=== PATIENT | male | born 1940 ===

== ENCOUNTER 2020-07-02 16:39 | Inpatient (IN) ==
[2020-07-02] MEDS ORDERED: Ondansetron 4 MG/2 ML VIAL IVP PRN (20:41)
[2020-07-02] MEDS: *HR* HYDROcodone/Acet 5/325 mg TABLET PO PRN (23:24)
[2020-07-03 05:19] LABS: Basophils # 0.1 K/mcL (0.0-0.2); Basophils % 0.7 %; Eosinophils # 0.4 K/mcL (0.0-0.6); Eosinophils % 3.9 %; Hematocrit 29.4 % (37.5-50.1); Hemoglobin 9.9 g/dL (12.9-16.9); Immature Granulocytes % 0.7 % (0-4); Lymphocytes # 2.5 K/mcL (0.6-4.6); Lymphocytes % 23.4 %; Mean Corpuscular HGB Conc 33.7 g/dL (31.6-35.5); Mean Corpuscular Hemoglobin 30.9 pg (28.0-33.3); Mean Corpuscular Volume 91.9 fL (83.0-100.0); Mean Platelet Volume 10.7 fL (9.4-12.4); Monocytes # 1.2 K/mcL (0.0-1.3); Monocytes % 11.1 %; Neutrophils # 6.4 K/mcL (1.6-8.9); Platelet Count 200 K/mcL (140-400); Red Cell Distribution Width 12.2 % (11.5-14.5); Segmented Neutrophils % 60.2 %; White Blood Count 10.6 K/mcL (4.3-11.1)
[2020-07-03 05:37] LABS: BUN/Creatinine Ratio 24 (6-26); Blood Urea Nitrogen 22 mg/dL (8-23); Calcium 8.5 mg/dL (8.6-10.3); Carbon Dioxide 29 mEq/L (23-29); Chloride 102 mEq/L (98-107); Glucose 115 mg/dL (70-105); Osmolality,Calculated 288 (280-300); Potassium 3.2 mEq/L (3.5-5.1); Sodium 137 mEq/L (136-145); eGFR For African Americans > 60 (> 60); eGFR For Non-African Americans > 60 (> 60)
[2020-07-03] MEDS: *HR* Enoxaparin 40 MG/0.4 ML SYRINGE SQ SCH (06:13)
[2020-07-03] MEDS: *HR* HYDROcodone/Acet 5/325 mg TABLET PO PRN ×3 (06:13→19:09)
[2020-07-03] MEDS: Aspirin Enteric Coated 81 MG Tablet PO SCH (08:45)
[2020-07-03] MEDS: amLODIPine 5 MG TABLET PO SCH (08:45)
[2020-07-03] MEDS: carvediloL 25 MG TABLET PO SCH ×2 (08:45→16:15)
[2020-07-03] MEDS: Multivit/Ca/Min/Fe/FA 1 TAB TABLET PO SCH (08:46)
[2020-07-03] MEDS: Cholecalciferol (D-3) 1,000 UNIT (25MCG) TABLET PO SCH (08:46)
[2020-07-03] MEDS: (Omega-3/Dha/Epa/Fish Oil) PO SCH (08:48)
[2020-07-04] MEDS: *HR* Enoxaparin 40 MG/0.4 ML SYRINGE SQ SCH (05:49)
[2020-07-04 06:57] LABS: Hematocrit 29.6 % (37.5-50.1); Hemoglobin 9.7 g/dL (12.9-16.9); Mean Corpuscular HGB Conc 32.8 g/dL (31.6-35.5); Mean Corpuscular Hemoglobin 30.5 pg (28.0-33.3); Mean Corpuscular Volume 93.1 fL (83.0-100.0); Mean Platelet Volume 10.4 fL (9.4-12.4); Platelet Count 206 K/mcL (140-400); Red Blood Count 3.18 M/mcL (4.19-5.50); Red Cell Distribution Width 12.3 % (11.5-14.5); White Blood Count 10.1 K/mcL (4.3-11.1)
[2020-07-04 07:28] LABS: BUN/Creatinine Ratio 20 (6-26); Blood Urea Nitrogen 21 mg/dL (8-23); Calcium 8.6 mg/dL (8.6-10.3); Carbon Dioxide 29 mEq/L (23-29); Chloride 102 mEq/L (98-107); Glucose 116 mg/dL (70-105); Magnesium 2.1 mg/dL (1.6-2.6); Osmolality,Calculated 290 (280-300); Potassium 3.5 mEq/L (3.5-5.1); Sodium 138 mEq/L (136-145); eGFR For African Americans > 60 (> 60); eGFR For Non-African Americans > 60 (> 60)
[2020-07-04] MEDS: Cholecalciferol (D-3) 1,000 UNIT (25MCG) TABLET PO SCH (08:37)
[2020-07-04] MEDS: Acetaminophen 325 MG TABLET PO PRN ×2 (08:37→17:03)
[2020-07-04] MEDS: amLODIPine 5 MG TABLET PO SCH (08:38)
[2020-07-04] MEDS: (Omega-3/Dha/Epa/Fish Oil) PO SCH (08:38)
[2020-07-04] MEDS: Aspirin Enteric Coated 81 MG Tablet PO SCH (08:38)
[2020-07-04] MEDS: carvediloL 25 MG TABLET PO SCH ×2 (08:38→17:02)
[2020-07-04] MEDS: Multivit/Ca/Min/Fe/FA 1 TAB TABLET PO SCH (08:38)
[2020-07-04] MEDS: *HR* HYDROcodone/Acet 5/325 mg TABLET PO PRN (21:04)
[2020-07-05] MEDS: *HR* Enoxaparin 40 MG/0.4 ML SYRINGE SQ SCH (06:05)
[2020-07-05] MEDS: carvediloL 25 MG TABLET PO SCH ×2 (10:43→16:47)
[2020-07-05] MEDS: Multivit/Ca/Min/Fe/FA 1 TAB TABLET PO SCH (10:43)
[2020-07-05] MEDS: amLODIPine 5 MG TABLET PO SCH (10:43)
[2020-07-05] MEDS: *HR* HYDROcodone/Acet 5/325 mg TABLET PO PRN ×2 (10:43→21:17)
[2020-07-05] MEDS: Aspirin Enteric Coated 81 MG Tablet PO SCH (10:43)
[2020-07-05] MEDS: Cholecalciferol (D-3) 1,000 UNIT (25MCG) TABLET PO SCH (10:44)
[2020-07-05] MEDS: Acetaminophen 325 MG TABLET PO PRN (16:45)
[2020-07-06] MEDS: *HR* Enoxaparin 40 MG/0.4 ML SYRINGE SQ SCH (06:27)
[2020-07-06] MEDS: carvediloL 25 MG TABLET PO SCH ×2 (13:35→17:02)
[2020-07-06] MEDS: Cholecalciferol (D-3) 1,000 UNIT (25MCG) TABLET PO SCH (13:37)
[2020-07-06] MEDS: amLODIPine 5 MG TABLET PO SCH (13:37)
[2020-07-06] MEDS: Multivit/Ca/Min/Fe/FA 1 TAB TABLET PO SCH (13:37)
[2020-07-06] MEDS: Aspirin Enteric Coated 81 MG Tablet PO SCH (13:39)
[2020-07-06] MEDS: *HR* HYDROcodone/Acet 5/325 mg TABLET PO PRN (21:48)
[2020-07-07] MEDS: *HR* Enoxaparin 40 MG/0.4 ML SYRINGE SQ SCH (04:39)
[2020-07-07] MEDS: *HR* HYDROcodone/Acet 5/325 mg TABLET PO PRN ×3 (04:43→21:21)
[2020-07-07] MEDS: Aspirin Enteric Coated 81 MG Tablet PO SCH (09:47)
[2020-07-07] MEDS: Cholecalciferol (D-3) 1,000 UNIT (25MCG) TABLET PO SCH (09:47)
[2020-07-07] MEDS: carvediloL 25 MG TABLET PO SCH ×2 (09:47→16:52)
[2020-07-07] MEDS: Multivit/Ca/Min/Fe/FA 1 TAB TABLET PO SCH (09:47)
[2020-07-07] MEDS: amLODIPine 5 MG TABLET PO SCH (09:48)
[2020-07-08] MEDS: *HR* HYDROcodone/Acet 5/325 mg TABLET PO PRN ×2 (04:41→11:36)
[2020-07-08] MEDS: *HR* Enoxaparin 40 MG/0.4 ML SYRINGE SQ SCH (04:42)
[2020-07-08] MEDS: Multivit/Ca/Min/Fe/FA 1 TAB TABLET PO SCH (08:27)
[2020-07-08] MEDS: carvediloL 25 MG TABLET PO SCH ×2 (08:27→16:28)
[2020-07-08] MEDS: Cholecalciferol (D-3) 1,000 UNIT (25MCG) TABLET PO SCH (08:27)
[2020-07-08] MEDS: amLODIPine 5 MG TABLET PO SCH (08:27)
[2020-07-08] MEDS: Aspirin Enteric Coated 81 MG Tablet PO SCH (08:27)
[2020-07-09] MEDS: *HR* Enoxaparin 40 MG/0.4 ML SYRINGE SQ SCH (09:50)
[2020-07-09] MEDS: Cholecalciferol (D-3) 1,000 UNIT (25MCG) TABLET PO SCH (09:51)
[2020-07-09] MEDS: amLODIPine 5 MG TABLET PO SCH (09:51)
[2020-07-09] MEDS: Aspirin Enteric Coated 81 MG Tablet PO SCH (09:51)
[2020-07-09] MEDS: Multivit/Ca/Min/Fe/FA 1 TAB TABLET PO SCH (09:51)
[2020-07-09] MEDS: carvediloL 25 MG TABLET PO SCH ×2 (09:51→16:59)
[2020-07-09] MEDS: Acetaminophen 325 MG TABLET PO PRN (17:16)
[2020-07-09] MEDS: *HR* HYDROcodone/Acet 5/325 mg TABLET PO PRN (20:47)
[2020-07-10] MEDS: *HR* Enoxaparin 40 MG/0.4 ML SYRINGE SQ SCH (05:24)
[2020-07-10 06:18] LABS: Hematocrit 30.7 % (37.5-50.1); Mean Corpuscular HGB Conc 32.6 g/dL (31.6-35.5); Mean Corpuscular Hemoglobin 30.9 pg (28.0-33.3); Mean Corpuscular Volume 94.8 fL (83.0-100.0); Mean Platelet Volume 10.2 fL (9.4-12.4); Platelet Count 312 K/mcL (140-400); Red Blood Count 3.24 M/mcL (4.19-5.50); Red Cell Distribution Width 12.6 % (11.5-14.5); White Blood Count 9.1 K/mcL (4.3-11.1)
[2020-07-10 06:51] LABS: Alanine Aminotransferase 20 Units/L (7-52); Albumin 3.5 g/dL (3.5-5.7); Albumin/Globulin Ratio 1.1 (1.1-2.2); Alkaline Phosphatase 115 Units/L (34-104); Aspartate Amino Transferase 23 Units/L (13-39); BUN/Creatinine Ratio 22 (6-26); Blood Urea Nitrogen 24 mg/dL (8-23); Calcium 8.6 mg/dL (8.6-10.3); Carbon Dioxide 27 mEq/L (23-29); Chloride 100 mEq/L (98-107); Globulin 3.2 g/dL (2.4-3.5); Glucose 107 mg/dL (70-105); Magnesium 2.2 mg/dL (1.6-2.6); Osmolality,Calculated 281 (280-300); Potassium 4.2 mEq/L (3.5-5.1); Sodium 133 mEq/L (136-145); Total Protein 6.7 g/dL (6.4-8.9); eGFR For African Americans > 60 (> 60); eGFR For Non-African Americans > 60 (> 60)
[2020-07-10 07:04] LABS: Bilirubin,Total 0.7 mg/dL (0.3-1.0)
[2020-07-10] MEDS: Aspirin Enteric Coated 81 MG Tablet PO SCH (09:22)
[2020-07-10] MEDS: Cholecalciferol (D-3) 1,000 UNIT (25MCG) TABLET PO SCH (09:23)
[2020-07-10] MEDS: amLODIPine 5 MG TABLET PO SCH (09:23)
[2020-07-10] MEDS: Multivit/Ca/Min/Fe/FA 1 TAB TABLET PO SCH (09:23)
[2020-07-10] MEDS: *HR* HYDROcodone/Acet 5/325 mg TABLET PO PRN ×2 (09:23→20:12)
[2020-07-10] MEDS: carvediloL 25 MG TABLET PO SCH ×2 (09:23→17:16)
[2020-07-11] MEDS: *HR* Enoxaparin 40 MG/0.4 ML SYRINGE SQ SCH (05:10)
[2020-07-11] MEDS: *HR* HYDROcodone/Acet 5/325 mg TABLET PO PRN ×2 (09:18→21:36)
[2020-07-11] MEDS: carvediloL 25 MG TABLET PO SCH ×2 (09:18→16:55)
[2020-07-11] MEDS: Multivit/Ca/Min/Fe/FA 1 TAB TABLET PO SCH (09:18)
[2020-07-11] MEDS: amLODIPine 5 MG TABLET PO SCH (09:18)
[2020-07-11] MEDS: Aspirin Enteric Coated 81 MG Tablet PO SCH (09:18)
[2020-07-11] MEDS: Cholecalciferol (D-3) 1,000 UNIT (25MCG) TABLET PO SCH (09:18)
[2020-07-12] MEDS: *HR* Enoxaparin 40 MG/0.4 ML SYRINGE SQ SCH (04:24)
[2020-07-12] MEDS: *HR* HYDROcodone/Acet 5/325 mg TABLET PO PRN ×2 (04:24→20:51)
[2020-07-12] MEDS: Multivit/Ca/Min/Fe/FA 1 TAB TABLET PO SCH (09:35)
[2020-07-12] MEDS: carvediloL 25 MG TABLET PO SCH ×2 (09:35→17:27)
[2020-07-12] MEDS: Cholecalciferol (D-3) 1,000 UNIT (25MCG) TABLET PO SCH (09:35)
[2020-07-12] MEDS: amLODIPine 5 MG TABLET PO SCH (09:35)
[2020-07-12] MEDS: Aspirin Enteric Coated 81 MG Tablet PO SCH (10:25)
[2020-07-13] MEDS: *HR* Enoxaparin 40 MG/0.4 ML SYRINGE SQ SCH (05:58)
[2020-07-13] MEDS: Aspirin Enteric Coated 81 MG Tablet PO SCH (09:47)
[2020-07-13] MEDS: Cholecalciferol (D-3) 1,000 UNIT (25MCG) TABLET PO SCH (09:47)
[2020-07-13] MEDS: amLODIPine 5 MG TABLET PO SCH (09:47)
[2020-07-13] MEDS: carvediloL 25 MG TABLET PO SCH ×2 (09:47→16:42)
[2020-07-13] MEDS: *HR* HYDROcodone/Acet 5/325 mg TABLET PO PRN ×2 (09:47→20:33)
[2020-07-13] MEDS: Multivit/Ca/Min/Fe/FA 1 TAB TABLET PO SCH (09:48)
[2020-07-14] MEDS: Aspirin Enteric Coated 81 MG Tablet PO SCH (06:32)
[2020-07-14] MEDS: Cholecalciferol (D-3) 1,000 UNIT (25MCG) TABLET PO SCH (06:32)
[2020-07-14] MEDS: amLODIPine 5 MG TABLET PO SCH (06:33)
[2020-07-14] MEDS: Multivit/Ca/Min/Fe/FA 1 TAB TABLET PO SCH (06:33)
[2020-07-14] MEDS: carvediloL 25 MG TABLET PO SCH ×2 (06:33→17:16)
[2020-07-14] MEDS: *HR* Enoxaparin 40 MG/0.4 ML SYRINGE SQ SCH (06:34)
[2020-07-14] MEDS: *HR* HYDROcodone/Acet 5/325 mg TABLET PO PRN ×2 (06:34→14:21)
[2020-07-15] MEDS: *HR* Enoxaparin 40 MG/0.4 ML SYRINGE SQ SCH (05:43)
[2020-07-15] MEDS: amLODIPine 5 MG TABLET PO SCH (08:50)
[2020-07-15] MEDS: Multivit/Ca/Min/Fe/FA 1 TAB TABLET PO SCH (08:50)
[2020-07-15] MEDS: Cholecalciferol (D-3) 1,000 UNIT (25MCG) TABLET PO SCH (08:50)
[2020-07-15] MEDS: carvediloL 25 MG TABLET PO SCH ×2 (08:50→16:48)
[2020-07-15] MEDS: *HR* HYDROcodone/Acet 5/325 mg TABLET PO PRN ×2 (08:50→16:51)
[2020-07-15] MEDS: Aspirin Enteric Coated 81 MG Tablet PO SCH (08:50)
[2020-07-15] MEDS: Acetaminophen 325 MG TABLET PO PRN (20:05)
[2020-07-16] MEDS: *HR* Enoxaparin 40 MG/0.4 ML SYRINGE SQ SCH (04:36)
[2020-07-16] MEDS: amLODIPine 5 MG TABLET PO SCH (08:34)
[2020-07-16] MEDS: *HR* HYDROcodone/Acet 5/325 mg TABLET PO PRN ×2 (08:34→16:48)
[2020-07-16] MEDS: Aspirin Enteric Coated 81 MG Tablet PO SCH (08:34)
[2020-07-16] MEDS: Multivit/Ca/Min/Fe/FA 1 TAB TABLET PO SCH (08:34)
[2020-07-16] MEDS: Cholecalciferol (D-3) 1,000 UNIT (25MCG) TABLET PO SCH (08:35)
[2020-07-16] MEDS: carvediloL 25 MG TABLET PO SCH ×2 (08:35→16:48)
[2020-07-16] MEDS: Acetaminophen 325 MG TABLET PO PRN (22:46)
[2020-07-17] MEDS: *HR* Enoxaparin 40 MG/0.4 ML SYRINGE SQ SCH (05:47)
[2020-07-17] MEDS: Aspirin Enteric Coated 81 MG Tablet PO SCH (09:14)
[2020-07-17] MEDS: *HR* HYDROcodone/Acet 5/325 mg TABLET PO PRN ×3 (09:14→22:47)
[2020-07-17] MEDS: Cholecalciferol (D-3) 1,000 UNIT (25MCG) TABLET PO SCH (09:15)
[2020-07-17] MEDS: amLODIPine 5 MG TABLET PO SCH (09:15)
[2020-07-17] MEDS: carvediloL 25 MG TABLET PO SCH ×2 (09:15→16:07)
[2020-07-17] MEDS: Multivit/Ca/Min/Fe/FA 1 TAB TABLET PO SCH (09:15)
[2020-07-18] MEDS: *HR* Enoxaparin 40 MG/0.4 ML SYRINGE SQ SCH (06:07)
[2020-07-18] MEDS: carvediloL 25 MG TABLET PO SCH ×2 (07:59→17:25)
[2020-07-18] MEDS: Cholecalciferol (D-3) 1,000 UNIT (25MCG) TABLET PO SCH (07:59)
[2020-07-18] MEDS: Multivit/Ca/Min/Fe/FA 1 TAB TABLET PO SCH (07:59)
[2020-07-18] MEDS: amLODIPine 5 MG TABLET PO SCH (08:00)
[2020-07-18] MEDS: Aspirin Enteric Coated 81 MG Tablet PO SCH (08:00)
[2020-07-18] MEDS: *HR* HYDROcodone/Acet 5/325 mg TABLET PO PRN ×3 (08:00→21:51)
[2020-07-18] MEDS: Acetaminophen 325 MG TABLET PO PRN (20:50)
[2020-07-19] MEDS: *HR* Enoxaparin 40 MG/0.4 ML SYRINGE SQ SCH (05:36)
[2020-07-19] MEDS: *HR* HYDROcodone/Acet 5/325 mg TABLET PO PRN ×2 (05:36→17:19)
[2020-07-19] MEDS: carvediloL 25 MG TABLET PO SCH ×2 (08:13→15:44)
[2020-07-19] MEDS: Multivit/Ca/Min/Fe/FA 1 TAB TABLET PO SCH (08:13)
[2020-07-19] MEDS: Cholecalciferol (D-3) 1,000 UNIT (25MCG) TABLET PO SCH (08:13)
[2020-07-19] MEDS: amLODIPine 5 MG TABLET PO SCH (08:13)
[2020-07-19] MEDS: Aspirin Enteric Coated 81 MG Tablet PO SCH (08:13)
[2020-07-19] MEDS: Acetaminophen 325 MG TABLET PO PRN (20:47)
[2020-07-20] MEDS: *HR* Enoxaparin 40 MG/0.4 ML SYRINGE SQ SCH (06:39)
[2020-07-20] MEDS: *HR* HYDROcodone/Acet 5/325 mg TABLET PO PRN ×2 (06:39→21:01)
[2020-07-20] MEDS: Cholecalciferol (D-3) 1,000 UNIT (25MCG) TABLET PO SCH (08:27)
[2020-07-20] MEDS: Aspirin Enteric Coated 81 MG Tablet PO SCH (08:27)
[2020-07-20] MEDS: carvediloL 25 MG TABLET PO SCH ×2 (08:27→16:23)
[2020-07-20] MEDS: amLODIPine 5 MG TABLET PO SCH (08:28)
[2020-07-20] MEDS: Multivit/Ca/Min/Fe/FA 1 TAB TABLET PO SCH (08:28)
[2020-07-21] MEDS: *HR* HYDROcodone/Acet 5/325 mg TABLET PO PRN ×2 (04:53→11:31)
[2020-07-21] MEDS: *HR* Enoxaparin 40 MG/0.4 ML SYRINGE SQ SCH (04:53)
[2020-07-21 07:21] VITALS: BP 135/67
[2020-07-21] MEDS: Aspirin Enteric Coated 81 MG Tablet PO SCH (09:14)
[2020-07-21] MEDS: carvediloL 25 MG TABLET PO SCH (09:14)
[2020-07-21] MEDS: amLODIPine 5 MG TABLET PO SCH (09:14)
[2020-07-21] MEDS: Cholecalciferol (D-3) 1,000 UNIT (25MCG) TABLET PO SCH (09:14)
[2020-07-21] MEDS: Multivit/Ca/Min/Fe/FA 1 TAB TABLET PO SCH (09:14)
== END 2020-07-21 14:35 | disposition home or self-care (01) | DRG 560 ==
LOC: INPGRE 20:17
PROVIDERS: ADMIT Family Medicine; ATTEND Family Medicine

== ENCOUNTER 2021-09-05 14:09 | Inpatient (IN) ==
[2021-09-05] MEDS ORDERED: MOM Conc 10 ML UD.LIQ PO PRN (14:24)
[2021-09-05] MEDS ORDERED: polyethylene glycoL 3350 17 GM POWD.PACK PO PRN (14:26)
[2021-09-05] MEDS: carvediloL 25 MG TABLET PO SCH (17:27)
[2021-09-05] MEDS: Acetaminophen 325 MG TABLET PO PRN (20:43)
[2021-09-05] MEDS: Sennosides 8.6 MG TABLET PO SCH (20:44)
[2021-09-05] MEDS: Melatonin 3 MG TABLET PO PRN (20:44)
[2021-09-06 04:58] LABS: Hematocrit 41.6 % (37.5-50.1); Hemoglobin 13.6 g/dL (12.9-16.9); Mean Corpuscular HGB Conc 32.7 g/dL (31.6-35.5); Mean Corpuscular Hemoglobin 30.4 pg (28.0-33.3); Mean Corpuscular Volume 92.9 fL (83.0-100.0); Mean Platelet Volume 11.4 fL (9.4-12.4); Platelet Count 151 K/mcL (140-400); Red Blood Count 4.48 M/mcL (4.19-5.50); White Blood Count 9.8 K/mcL (4.3-11.1)
[2021-09-06 05:12] LABS: BUN/Creatinine Ratio 15 (6-26); Blood Urea Nitrogen 19 mg/dL (8-23); Calcium 8.9 mg/dL (8.6-10.3); Carbon Dioxide 28 mEq/L (23-29); Chloride 105 mEq/L (98-107); Glucose 120 mg/dL (70-105); Magnesium 2.2 mg/dL (1.6-2.6); Osmolality,Calculated 291 (280-300); Potassium 3.9 mEq/L (3.5-5.1); Sodium 139 mEq/L (136-145); eGFR For African Americans > 60 (> 60); eGFR For Non-African Americans 54 (> 60)
[2021-09-06] MEDS ORDERED: *HR* Enoxaparin 40 MG/0.4 ML SYRINGE SQ SCH (06:00)
[2021-09-06] MEDS: Multivit/Ca/Min/Fe/FA 1 TAB TABLET PO SCH (09:14)
[2021-09-06] MEDS: Aspirin Enteric Coated 325 MG Tablet PO SCH (09:15)
[2021-09-06] MEDS: Sennosides 8.6 MG TABLET PO SCH ×2 (09:15→22:21)
[2021-09-06] MEDS: carvediloL 25 MG TABLET PO SCH (17:04)
[2021-09-06] MEDS: Acetaminophen 325 MG TABLET PO PRN (22:21)
[2021-09-06] MEDS: Melatonin 3 MG TABLET PO PRN (22:21)
[2021-09-07] MEDS: *HR* Enoxaparin 40 MG/0.4 ML SYRINGE SQ SCH (06:46)
[2021-09-07] MEDS: Multivit/Ca/Min/Fe/FA 1 TAB TABLET PO SCH (08:08)
[2021-09-07] MEDS: Sennosides 8.6 MG TABLET PO SCH ×2 (08:08→21:06)
[2021-09-07] MEDS: Aspirin Enteric Coated 325 MG Tablet PO SCH (08:08)
[2021-09-07] MEDS: Furosemide 20 MG TABLET PO SCH (08:08)
[2021-09-07] MEDS: polyethylene glycoL 3350 17 GM POWD.PACK PO SCH (11:12)
[2021-09-07] MEDS: carvediloL 25 MG TABLET PO SCH (16:25)
[2021-09-07] MEDS: hydrALAZINE 10 MG TABLET PO PRN (16:25)
[2021-09-07] MEDS ORDERED: hydrALAZINE 10 MG TABLET PO SCH (18:00)
[2021-09-07] MEDS: Acetaminophen 325 MG TABLET PO PRN (21:05)
[2021-09-07] MEDS: Melatonin 3 MG TABLET PO PRN (21:06)
[2021-09-08] MEDS: Acetaminophen 325 MG TABLET PO PRN ×3 (03:44→21:00)
[2021-09-08] MEDS: *HR* Enoxaparin 40 MG/0.4 ML SYRINGE SQ SCH (05:18)
[2021-09-08] MEDS: Multivit/Ca/Min/Fe/FA 1 TAB TABLET PO SCH (08:29)
[2021-09-08] MEDS: Furosemide 20 MG TABLET PO SCH (08:29)
[2021-09-08] MEDS: Aspirin Enteric Coated 325 MG Tablet PO SCH (08:29)
[2021-09-08] MEDS: Sennosides 8.6 MG TABLET PO SCH ×2 (08:29→21:00)
[2021-09-08] MEDS: polyethylene glycoL 3350 17 GM POWD.PACK PO SCH (08:30)
[2021-09-08] MEDS: carvediloL 25 MG TABLET PO SCH (16:37)
[2021-09-08] MEDS: Melatonin 3 MG TABLET PO PRN (20:59)
[2021-09-09] MEDS: *HR* Enoxaparin 40 MG/0.4 ML SYRINGE SQ SCH (05:25)
[2021-09-09] MEDS: Furosemide 20 MG TABLET PO SCH (08:18)
[2021-09-09] MEDS: Aspirin Enteric Coated 325 MG Tablet PO SCH (08:18)
[2021-09-09] MEDS: Multivit/Ca/Min/Fe/FA 1 TAB TABLET PO SCH (08:18)
[2021-09-09] MEDS: Sennosides 8.6 MG TABLET PO SCH ×2 (08:18→20:16)
[2021-09-09] MEDS: polyethylene glycoL 3350 17 GM POWD.PACK PO SCH (08:18)
[2021-09-09] MEDS: Acetaminophen 325 MG TABLET PO PRN ×2 (08:24→20:17)
[2021-09-09] MEDS: carvediloL 25 MG TABLET PO SCH (17:45)
[2021-09-09] MEDS: Melatonin 3 MG TABLET PO PRN (20:17)
[2021-09-09] MEDS: hydrALAZINE 10 MG TABLET PO PRN (20:17)
[2021-09-10 07:01] LABS: Hematocrit 39.8 % (37.5-50.1); Mean Corpuscular HGB Conc 32.7 g/dL (31.6-35.5); Mean Corpuscular Hemoglobin 30.2 pg (28.0-33.3); Mean Corpuscular Volume 92.6 fL (83.0-100.0); Mean Platelet Volume 11.2 fL (9.4-12.4); Platelet Count 151 K/mcL (140-400); Red Cell Distribution Width 12.8 % (11.5-14.5); White Blood Count 7.5 K/mcL (4.3-11.1)
[2021-09-10 07:21] LABS: Alanine Aminotransferase 15 Units/L (7-52); Albumin 3.5 g/dL (3.5-5.7); Albumin/Globulin Ratio 1.3 (1.1-2.2); Alkaline Phosphatase 81 Units/L (34-104); Aspartate Amino Transferase 22 Units/L (13-39); BUN/Creatinine Ratio 15 (6-26); Bilirubin,Total 0.7 mg/dL (0.3-1.0); Blood Urea Nitrogen 18 mg/dL (8-23); Calcium 8.6 mg/dL (8.6-10.3); Carbon Dioxide 29 mEq/L (23-29); Chloride 103 mEq/L (98-107); Globulin 2.8 g/dL (2.4-3.5); Glucose 104 mg/dL (70-105); Magnesium 2.2 mg/dL (1.6-2.6); Osmolality,Calculated 290 (280-300); Potassium 3.5 mEq/L (3.5-5.1); Sodium 139 mEq/L (136-145); Total Protein 6.3 g/dL (6.4-8.9); eGFR For African Americans > 60 (> 60); eGFR For Non-African Americans 58 (> 60)
[2021-09-10] MEDS: Aspirin Enteric Coated 325 MG Tablet PO SCH (08:29)
[2021-09-10] MEDS: Furosemide 20 MG TABLET PO SCH (08:29)
[2021-09-10] MEDS: Multivit/Ca/Min/Fe/FA 1 TAB TABLET PO SCH (08:29)
[2021-09-10] MEDS: Sennosides 8.6 MG TABLET PO SCH ×2 (08:29→21:42)
[2021-09-10] MEDS: Apixaban 5 MG TABLET PO SCH ×3 (08:30→21:41)
[2021-09-10] MEDS: polyethylene glycoL 3350 17 GM POWD.PACK PO SCH (08:31)
[2021-09-10] MEDS: Acetaminophen 325 MG TABLET PO PRN (11:31)
[2021-09-10] MEDS: carvediloL 25 MG TABLET PO SCH (16:23)
[2021-09-10] MEDS: Melatonin 3 MG TABLET PO PRN (21:41)
[2021-09-11] MEDS: Sennosides 8.6 MG TABLET PO SCH ×2 (09:30→21:26)
[2021-09-11] MEDS: Furosemide 20 MG TABLET PO SCH (09:30)
[2021-09-11] MEDS: Apixaban 5 MG TABLET PO SCH ×2 (09:30→21:25)
[2021-09-11] MEDS: Aspirin Enteric Coated 325 MG Tablet PO SCH (09:30)
[2021-09-11] MEDS: Multivit/Ca/Min/Fe/FA 1 TAB TABLET PO SCH (09:30)
[2021-09-11] MEDS: polyethylene glycoL 3350 17 GM POWD.PACK PO SCH (09:31)
[2021-09-11] MEDS: Acetaminophen 325 MG TABLET PO PRN ×2 (09:33→21:25)
[2021-09-11] MEDS: carvediloL 25 MG TABLET PO SCH (16:08)
[2021-09-11] MEDS: Melatonin 3 MG TABLET PO PRN (21:25)
[2021-09-12] MEDS: Aspirin Enteric Coated 325 MG Tablet PO SCH (09:19)
[2021-09-12] MEDS: Multivit/Ca/Min/Fe/FA 1 TAB TABLET PO SCH (09:20)
[2021-09-12] MEDS: polyethylene glycoL 3350 17 GM POWD.PACK PO SCH (09:20)
[2021-09-12] MEDS: Apixaban 5 MG TABLET PO SCH ×2 (09:20→21:17)
[2021-09-12] MEDS: Sennosides 8.6 MG TABLET PO SCH ×2 (09:20→21:17)
[2021-09-12] MEDS: Furosemide 20 MG TABLET PO SCH (09:20)
[2021-09-12] MEDS: carvediloL 25 MG TABLET PO SCH (16:34)
[2021-09-12] MEDS: Acetaminophen 325 MG TABLET PO PRN (16:34)
[2021-09-12] MEDS: Melatonin 3 MG TABLET PO PRN (21:17)
[2021-09-13] MEDS: Acetaminophen 325 MG TABLET PO PRN ×2 (08:40→20:35)
[2021-09-13] MEDS: Furosemide 20 MG TABLET PO SCH (08:41)
[2021-09-13] MEDS: Aspirin Enteric Coated 325 MG Tablet PO SCH (08:41)
[2021-09-13] MEDS: polyethylene glycoL 3350 17 GM POWD.PACK PO SCH (08:41)
[2021-09-13] MEDS: Sennosides 8.6 MG TABLET PO SCH ×2 (08:41→20:34)
[2021-09-13] MEDS: Multivit/Ca/Min/Fe/FA 1 TAB TABLET PO SCH (08:41)
[2021-09-13] MEDS: Apixaban 5 MG TABLET PO SCH ×2 (08:41→20:35)
[2021-09-13] MEDS: Ibuprofen 400 MG TABLET PO PRN (12:15)
[2021-09-13] MEDS: carvediloL 25 MG TABLET PO SCH (17:09)
[2021-09-13] MEDS: Melatonin 3 MG TABLET PO PRN (20:34)
[2021-09-14] MEDS: Aspirin Enteric Coated 325 MG Tablet PO SCH (08:45)
[2021-09-14] MEDS: Multivit/Ca/Min/Fe/FA 1 TAB TABLET PO SCH (08:45)
[2021-09-14] MEDS: Furosemide 20 MG TABLET PO SCH (08:45)
[2021-09-14] MEDS: Sennosides 8.6 MG TABLET PO SCH ×2 (08:45→19:45)
[2021-09-14] MEDS: Apixaban 5 MG TABLET PO SCH ×2 (08:45→19:45)
[2021-09-14] MEDS: polyethylene glycoL 3350 17 GM POWD.PACK PO SCH (08:46)
[2021-09-14] MEDS: carvediloL 25 MG TABLET PO SCH (17:45)
[2021-09-14] MEDS: hydrALAZINE 10 MG TABLET PO PRN (19:45)
[2021-09-15 04:37] LABS: Hematocrit 39.8 % (37.5-50.1); Hemoglobin 13.1 g/dL (12.9-16.9); Mean Corpuscular HGB Conc 32.9 g/dL (31.6-35.5); Mean Corpuscular Hemoglobin 30.2 pg (28.0-33.3); Mean Corpuscular Volume 91.7 fL (83.0-100.0); Mean Platelet Volume 11.1 fL (9.4-12.4); Platelet Count 144 K/mcL (140-400); Red Blood Count 4.34 M/mcL (4.19-5.50); Red Cell Distribution Width 12.9 % (11.5-14.5); White Blood Count 9.2 K/mcL (4.3-11.1)
[2021-09-15 04:59] LABS: Alanine Aminotransferase 16 Units/L (7-52); Albumin 3.5 g/dL (3.5-5.7); Albumin/Globulin Ratio 1.2 (1.1-2.2); Alkaline Phosphatase 88 Units/L (34-104); Aspartate Amino Transferase 22 Units/L (13-39); BUN/Creatinine Ratio 14 (6-26); Bilirubin,Total 0.7 mg/dL (0.3-1.0); Blood Urea Nitrogen 17 mg/dL (8-23); Carbon Dioxide 31 mEq/L (23-29); Chloride 103 mEq/L (98-107); Glucose 110 mg/dL (70-105); Magnesium 1.9 mg/dL (1.6-2.6); Osmolality,Calculated 290 (280-300); Potassium 3.5 mEq/L (3.5-5.1); Sodium 139 mEq/L (136-145); Total Protein 6.5 g/dL (6.4-8.9); eGFR For African Americans > 60 (> 60); eGFR For Non-African Americans 57 (> 60)
[2021-09-15] MEDS: Apixaban 5 MG TABLET PO SCH ×2 (09:52→21:35)
[2021-09-15] MEDS: Aspirin Enteric Coated 325 MG Tablet PO SCH (09:52)
[2021-09-15] MEDS: Ibuprofen 400 MG TABLET PO PRN (09:52)
[2021-09-15] MEDS: polyethylene glycoL 3350 17 GM POWD.PACK PO SCH (09:53)
[2021-09-15] MEDS: Multivit/Ca/Min/Fe/FA 1 TAB TABLET PO SCH (09:53)
[2021-09-15] MEDS: Furosemide 20 MG TABLET PO SCH (09:53)
[2021-09-15] MEDS: Sennosides 8.6 MG TABLET PO SCH ×2 (09:53→21:36)
[2021-09-15] MEDS: carvediloL 25 MG TABLET PO SCH (17:47)
[2021-09-16] MEDS: polyethylene glycoL 3350 17 GM POWD.PACK PO SCH (08:33)
[2021-09-16] MEDS: Aspirin Enteric Coated 325 MG Tablet PO SCH (08:33)
[2021-09-16] MEDS: Sennosides 8.6 MG TABLET PO SCH ×2 (08:33→22:15)
[2021-09-16] MEDS: Apixaban 5 MG TABLET PO SCH ×2 (08:33→22:15)
[2021-09-16] MEDS: Furosemide 20 MG TABLET PO SCH (08:33)
[2021-09-16] MEDS: Ibuprofen 400 MG TABLET PO PRN (08:33)
[2021-09-16] MEDS: Multivit/Ca/Min/Fe/FA 1 TAB TABLET PO SCH (08:33)
[2021-09-16] MEDS: carvediloL 25 MG TABLET PO SCH (18:38)
[2021-09-16] MEDS: hydrALAZINE 10 MG TABLET PO PRN (22:15)
[2021-09-16] MEDS: Melatonin 3 MG TABLET PO PRN (22:15)
[2021-09-16] MEDS: Acetaminophen 325 MG TABLET PO PRN (22:15)
[2021-09-17] MEDS: Acetaminophen 325 MG TABLET PO PRN (09:15)
[2021-09-17] MEDS: Furosemide 20 MG TABLET PO SCH (09:15)
[2021-09-17] MEDS: Ibuprofen 400 MG TABLET PO PRN ×2 (09:16→16:21)
[2021-09-17] MEDS: Multivit/Ca/Min/Fe/FA 1 TAB TABLET PO SCH (09:17)
[2021-09-17] MEDS: Aspirin Enteric Coated 325 MG Tablet PO SCH (09:17)
[2021-09-17] MEDS: polyethylene glycoL 3350 17 GM POWD.PACK PO SCH (09:17)
[2021-09-17] MEDS: Sennosides 8.6 MG TABLET PO SCH ×2 (09:17→20:05)
[2021-09-17] MEDS: Apixaban 5 MG TABLET PO SCH ×2 (09:17→20:05)
[2021-09-17] MEDS: carvediloL 25 MG TABLET PO SCH (16:21)
[2021-09-18] MEDS: Furosemide 20 MG TABLET PO SCH (08:08)
[2021-09-18] MEDS: Aspirin Enteric Coated 325 MG Tablet PO SCH (08:08)
[2021-09-18] MEDS: Apixaban 5 MG TABLET PO SCH ×2 (08:08→19:55)
[2021-09-18] MEDS: Multivit/Ca/Min/Fe/FA 1 TAB TABLET PO SCH (08:09)
[2021-09-18] MEDS: polyethylene glycoL 3350 17 GM POWD.PACK PO SCH (08:09)
[2021-09-18] MEDS: Sennosides 8.6 MG TABLET PO SCH ×2 (08:09→19:56)
[2021-09-18] MEDS: hydrALAZINE 10 MG TABLET PO PRN (14:31)
[2021-09-18] MEDS: carvediloL 25 MG TABLET PO SCH (16:35)
[2021-09-18] MEDS: Ibuprofen 400 MG TABLET PO PRN (16:35)
[2021-09-19 04:37] LABS: Hematocrit 36.1 % (37.5-50.1); Mean Corpuscular HGB Conc 33.2 g/dL (31.6-35.5); Mean Corpuscular Hemoglobin 30.9 pg (28.0-33.3); Mean Platelet Volume 11.2 fL (9.4-12.4); Platelet Count 139 K/mcL (140-400); Red Blood Count 3.88 M/mcL (4.19-5.50); Red Cell Distribution Width 13.2 % (11.5-14.5); White Blood Count 7.6 K/mcL (4.3-11.1)
[2021-09-19 04:56] LABS: Alanine Aminotransferase 14 Units/L (7-52); Albumin 3.4 g/dL (3.5-5.7); Albumin/Globulin Ratio 1.3 (1.1-2.2); Alkaline Phosphatase 80 Units/L (34-104); Aspartate Amino Transferase 21 Units/L (13-39); BUN/Creatinine Ratio 15 (6-26); Bilirubin,Total 0.8 mg/dL (0.3-1.0); Blood Urea Nitrogen 17 mg/dL (8-23); Calcium 8.5 mg/dL (8.6-10.3); Carbon Dioxide 28 mEq/L (23-29); Chloride 105 mEq/L (98-107); Globulin 2.7 g/dL (2.4-3.5); Glucose 106 mg/dL (70-105); Magnesium 1.9 mg/dL (1.6-2.6); Osmolality,Calculated 288 (280-300); Potassium 3.4 mEq/L (3.5-5.1); Sodium 138 mEq/L (136-145); Total Protein 6.1 g/dL (6.4-8.9); eGFR For African Americans > 60 (> 60); eGFR For Non-African Americans > 60 (> 60)
[2021-09-19] MEDS: Ibuprofen 400 MG TABLET PO PRN (06:56)
[2021-09-19] MEDS: Furosemide 20 MG TABLET PO SCH (08:45)
[2021-09-19] MEDS: Aspirin Enteric Coated 325 MG Tablet PO SCH (08:45)
[2021-09-19] MEDS: Multivit/Ca/Min/Fe/FA 1 TAB TABLET PO SCH (08:45)
[2021-09-19] MEDS: Sennosides 8.6 MG TABLET PO SCH ×2 (08:46→20:32)
[2021-09-19] MEDS: Apixaban 5 MG TABLET PO SCH ×2 (08:46→20:32)
[2021-09-19] MEDS: polyethylene glycoL 3350 17 GM POWD.PACK PO SCH (08:47)
[2021-09-19] MEDS: carvediloL 25 MG TABLET PO SCH (17:52)
[2021-09-19] MEDS: Melatonin 3 MG TABLET PO PRN (20:32)
[2021-09-20] MEDS: Multivit/Ca/Min/Fe/FA 1 TAB TABLET PO SCH (07:44)
[2021-09-20] MEDS: Aspirin Enteric Coated 325 MG Tablet PO SCH (07:44)
[2021-09-20] MEDS: Sennosides 8.6 MG TABLET PO SCH ×2 (07:44→20:36)
[2021-09-20] MEDS: Ibuprofen 400 MG TABLET PO PRN ×2 (07:44→16:36)
[2021-09-20] MEDS: Furosemide 20 MG TABLET PO SCH (07:45)
[2021-09-20] MEDS: Apixaban 5 MG TABLET PO SCH ×2 (07:45→20:36)
[2021-09-20 08:06] LABS: Bilirubin,Urine Negative (Negative); Blood,Urine Large (Negative); Clarity,Urine Cloudy (Clear); Color,Urine Orange (Yellow); Glucose,Urine (UA) Normal (Normal); Ketones,Urine Negative (Negative); Leukocyte Esterase,Urine Small (Negative); Nitrite,Urine Negative (Negative); Protein,Urine 100 mg/dL (Neg-Trace); Specific Gravity,Urine 1.015 (1.010-1.025); Urobilinogen,Urine Normal (Normal)
[2021-09-20 08:16] LABS: RBC,Urine 30-50 per hpf (0-3)
[2021-09-20 08:17] LABS: Bacteria,Urine Few per hpf (None-Few)
[2021-09-20] MEDS: polyethylene glycoL 3350 17 GM POWD.PACK PO SCH (09:28)
[2021-09-20 10:01] LABS: Hematocrit 42.9 % (37.5-50.1); Hemoglobin 13.8 g/dL (12.9-16.9)
[2021-09-20] MEDS: carvediloL 25 MG TABLET PO SCH (16:03)
[2021-09-20] MEDS: Melatonin 3 MG TABLET PO PRN (20:36)
[2021-09-21] MEDS: Aspirin Enteric Coated 325 MG Tablet PO SCH (07:54)
[2021-09-21] MEDS: Ibuprofen 400 MG TABLET PO PRN (07:55)
[2021-09-21] MEDS: Multivit/Ca/Min/Fe/FA 1 TAB TABLET PO SCH (07:55)
[2021-09-21] MEDS: Furosemide 20 MG TABLET PO SCH (07:55)
[2021-09-21] MEDS: Apixaban 5 MG TABLET PO SCH ×2 (07:55→20:08)
[2021-09-21] MEDS: polyethylene glycoL 3350 17 GM POWD.PACK PO SCH (07:56)
[2021-09-21] MEDS: Sennosides 8.6 MG TABLET PO SCH ×2 (07:56→20:07)
[2021-09-21] MEDS ORDERED: hydrALAZINE 10 MG TABLET PO PRN (09:29)
[2021-09-21 09:32] LABS: Hematocrit 40.3 % (37.5-50.1); Hemoglobin 13.1 g/dL (12.9-16.9); Mean Corpuscular HGB Conc 32.5 g/dL (31.6-35.5); Mean Corpuscular Hemoglobin 30.6 pg (28.0-33.3); Mean Corpuscular Volume 94.2 fL (83.0-100.0); Mean Platelet Volume 11.4 fL (9.4-12.4); Platelet Count 154 K/mcL (140-400); Red Blood Count 4.28 M/mcL (4.19-5.50); Red Cell Distribution Width 13.1 % (11.5-14.5); White Blood Count 7.8 K/mcL (4.3-11.1)
[2021-09-21 09:41] LABS: Alanine Aminotransferase 16 Units/L (7-52); Albumin 3.7 g/dL (3.5-5.7); Albumin/Globulin Ratio 1.2 (1.1-2.2); Alkaline Phosphatase 91 Units/L (34-104); Aspartate Amino Transferase 21 Units/L (13-39); BUN/Creatinine Ratio 16 (6-26); Bilirubin,Total 0.9 mg/dL (0.3-1.0); Blood Urea Nitrogen 17 mg/dL (8-23); Calcium 8.9 mg/dL (8.6-10.3); Carbon Dioxide 27 mEq/L (23-29); Chloride 104 mEq/L (98-107); Globulin 3.2 g/dL (2.4-3.5); Glucose 155 mg/dL (70-105); Osmolality,Calculated 289 (280-300); Potassium 3.6 mEq/L (3.5-5.1); Sodium 137 mEq/L (136-145); Total Protein 6.9 g/dL (6.4-8.9); eGFR For African Americans > 60 (> 60); eGFR For Non-African Americans > 60 (> 60)
[2021-09-21] MEDS: hydrALAZINE 10 MG TABLET PO SCH ×2 (12:08→12:19)
[2021-09-21] MEDS ORDERED: Saline Nasal Spray 44 ML BOTTLE NS PRN (12:21)
[2021-09-21] MEDS: Acetaminophen 325 MG TABLET PO PRN ×2 (13:08→20:08)
[2021-09-21] MEDS: Loratadine/Pseudophed (12 HR) 1 EACH TABLET PO SCH ×2 (13:09→20:07)
[2021-09-21] MEDS: carvediloL 25 MG TABLET PO SCH (16:34)
[2021-09-22 04:54] LABS: Bilirubin,Urine Negative (Negative); Blood,Urine Large (Negative); Clarity,Urine Slightly Cloudy (Clear); Glucose,Urine (UA) Normal (Normal); Ketones,Urine Negative (Negative); Leukocyte Esterase,Urine Small (Negative); Nitrite,Urine Negative (Negative); PH,Urine 6.5 pH Units (5.0-8.0); Protein,Urine Trace mg/dL (Neg-Trace); Urobilinogen,Urine Normal (Normal)
[2021-09-22 04:56] LABS: Amorphous Sediment,Urine Few per hpf (None-Few); Bacteria,Urine Few per hpf (None-Few); Color,Urine DARK YELLOW (Yellow); Hyaline Casts,Urine Few per lpf (None Seen)
[2021-09-22] MEDS: Multivit/Ca/Min/Fe/FA 1 TAB TABLET PO SCH (08:06)
[2021-09-22] MEDS: Sennosides 8.6 MG TABLET PO SCH ×2 (08:06→20:07)
[2021-09-22] MEDS: carvediloL 25 MG TABLET PO SCH ×2 (08:06→16:21)
[2021-09-22] MEDS: Furosemide 20 MG TABLET PO SCH (08:06)
[2021-09-22] MEDS: Apixaban 5 MG TABLET PO SCH ×2 (08:06→20:07)
[2021-09-22] MEDS: Aspirin Enteric Coated 325 MG Tablet PO SCH (08:07)
[2021-09-22] MEDS: polyethylene glycoL 3350 17 GM POWD.PACK PO SCH (08:07)
[2021-09-22] MEDS: Loratadine/Pseudophed (12 HR) 1 EACH TABLET PO SCH ×2 (08:07→20:08)
[2021-09-22] MEDS: Acetaminophen 325 MG TABLET PO PRN (13:18)
[2021-09-23] MEDS: Aspirin Enteric Coated 325 MG Tablet PO SCH (08:38)
[2021-09-23] MEDS: Loratadine/Pseudophed (12 HR) 1 EACH TABLET PO SCH ×2 (08:38→19:28)
[2021-09-23] MEDS: carvediloL 25 MG TABLET PO SCH ×2 (08:38→16:08)
[2021-09-23] MEDS: Multivit/Ca/Min/Fe/FA 1 TAB TABLET PO SCH (08:38)
[2021-09-23] MEDS: Apixaban 5 MG TABLET PO SCH ×2 (08:38→19:28)
[2021-09-23] MEDS: Furosemide 20 MG TABLET PO SCH (08:38)
[2021-09-23] MEDS: polyethylene glycoL 3350 17 GM POWD.PACK PO SCH (08:39)
[2021-09-23] MEDS: Sennosides 8.6 MG TABLET PO SCH ×2 (08:39→19:30)
[2021-09-23] MEDS: Acetaminophen 325 MG TABLET PO PRN (14:07)
[2021-09-23] MEDS: Melatonin 3 MG TABLET PO PRN (19:29)
[2021-09-24] MEDS: polyethylene glycoL 3350 17 GM POWD.PACK PO SCH (08:20)
[2021-09-24] MEDS: Loratadine/Pseudophed (12 HR) 1 EACH TABLET PO SCH ×2 (08:21→19:20)
[2021-09-24] MEDS: Sennosides 8.6 MG TABLET PO SCH ×2 (08:21→19:22)
[2021-09-24] MEDS: Apixaban 5 MG TABLET PO SCH ×2 (08:21→19:20)
[2021-09-24] MEDS: Multivit/Ca/Min/Fe/FA 1 TAB TABLET PO SCH (08:21)
[2021-09-24] MEDS: Furosemide 20 MG TABLET PO SCH (08:21)
[2021-09-24] MEDS: carvediloL 25 MG TABLET PO SCH ×2 (08:21→16:27)
[2021-09-24] MEDS: Aspirin Enteric Coated 325 MG Tablet PO SCH (08:21)
[2021-09-24] MEDS: Ibuprofen 400 MG TABLET PO PRN (12:36)
[2021-09-24] MEDS: Amoxicillin/Clavulanate 500 MG TABLET PO SCH (16:27)
[2021-09-24] MEDS: Melatonin 3 MG TABLET PO PRN (19:21)
[2021-09-25] MEDS: Aspirin Enteric Coated 325 MG Tablet PO SCH (08:41)
[2021-09-25] MEDS: Amoxicillin/Clavulanate 500 MG TABLET PO SCH (08:41)
[2021-09-25] MEDS: Apixaban 5 MG TABLET PO SCH ×2 (08:41→20:23)
[2021-09-25] MEDS: Loratadine/Pseudophed (12 HR) 1 EACH TABLET PO SCH ×2 (08:41→20:23)
[2021-09-25] MEDS: Multivit/Ca/Min/Fe/FA 1 TAB TABLET PO SCH (08:42)
[2021-09-25] MEDS: carvediloL 25 MG TABLET PO SCH ×2 (08:42→15:19)
[2021-09-25] MEDS: Sennosides 8.6 MG TABLET PO SCH ×2 (08:42→20:23)
[2021-09-25] MEDS: Furosemide 20 MG TABLET PO SCH (08:42)
[2021-09-25] MEDS: polyethylene glycoL 3350 17 GM POWD.PACK PO SCH (08:42)
[2021-09-25] MEDS: Nitrofurantoin (BID) 100 MG CAPSULE PO SCH (17:14)
[2021-09-25] MEDS: Melatonin 3 MG TABLET PO PRN (20:23)
[2021-09-25] MEDS: Acetaminophen 325 MG TABLET PO PRN (20:23)
[2021-09-26] MEDS: Furosemide 20 MG TABLET PO SCH (08:16)
[2021-09-26] MEDS: Aspirin Enteric Coated 325 MG Tablet PO SCH (08:16)
[2021-09-26] MEDS: Nitrofurantoin (BID) 100 MG CAPSULE PO SCH ×2 (08:16→14:34)
[2021-09-26] MEDS: Sennosides 8.6 MG TABLET PO SCH ×2 (08:16→20:51)
[2021-09-26] MEDS: Apixaban 5 MG TABLET PO SCH ×2 (08:16→20:50)
[2021-09-26] MEDS: carvediloL 25 MG TABLET PO SCH ×2 (08:16→14:35)
[2021-09-26] MEDS: Multivit/Ca/Min/Fe/FA 1 TAB TABLET PO SCH (08:16)
[2021-09-26] MEDS: polyethylene glycoL 3350 17 GM POWD.PACK PO SCH (08:17)
[2021-09-26] MEDS: Loratadine/Pseudophed (12 HR) 1 EACH TABLET PO SCH ×2 (09:13→20:55)
[2021-09-26] MEDS: Ibuprofen 400 MG TABLET PO PRN (14:34)
[2021-09-26] MEDS: Melatonin 3 MG TABLET PO PRN (20:50)
[2021-09-26] MEDS: Acetaminophen 325 MG TABLET PO PRN (20:50)
[2021-09-26 21:31] VITALS: RESP 16
[2021-09-27 05:14] LABS: Basophils # 0.1 K/mcL (0.0-0.2); Eosinophils # 0.3 K/mcL (0.0-0.6); Eosinophils % 4.5 %; Hemoglobin 12.5 g/dL (12.9-16.9); Immature Granulocytes % 0.4 % (0-4); Lymphocytes # 1.5 K/mcL (0.6-4.6); Lymphocytes % 21.4 %; Mean Corpuscular HGB Conc 32.9 g/dL (31.6-35.5); Mean Corpuscular Hemoglobin 30.8 pg (28.0-33.3); Mean Corpuscular Volume 93.6 fL (83.0-100.0); Mean Platelet Volume 11.3 fL (9.4-12.4); Monocytes # 0.7 K/mcL (0.0-1.3); Neutrophils # 4.5 K/mcL (1.6-8.9); Red Blood Count 4.06 M/mcL (4.19-5.50); Red Cell Distribution Width 13.2 % (11.5-14.5); Segmented Neutrophils % 62.7 %; White Blood Count 7.2 K/mcL (4.3-11.1)
[2021-09-27 05:20] LABS: Platelet Count 131 K/mcL (140-400); Platelet Estimate Normal (Normal)
[2021-09-27 05:32] LABS: Alanine Aminotransferase 14 Units/L (7-52); Albumin 3.3 g/dL (3.5-5.7); Albumin/Globulin Ratio 1.1 (1.1-2.2); Alkaline Phosphatase 99 Units/L (34-104); Aspartate Amino Transferase 17 Units/L (13-39); BUN/Creatinine Ratio 20 (6-26); Bilirubin,Total 0.8 mg/dL (0.3-1.0); Blood Urea Nitrogen 25 mg/dL (8-23); Calcium 8.7 mg/dL (8.6-10.3); Carbon Dioxide 29 mEq/L (23-29); Chloride 103 mEq/L (98-107); Glucose 107 mg/dL (70-105); Osmolality,Calculated 291 (280-300); Potassium 4.1 mEq/L (3.5-5.1); Sodium 138 mEq/L (136-145); Total Protein 6.3 g/dL (6.4-8.9); eGFR For African Americans > 60 (> 60); eGFR For Non-African Americans 55 (> 60)
[2021-09-27] MEDS: polyethylene glycoL 3350 17 GM POWD.PACK PO SCH (08:30)
[2021-09-27] MEDS: Furosemide 20 MG TABLET PO SCH (08:30)
[2021-09-27] MEDS: Apixaban 5 MG TABLET PO SCH ×2 (08:30→19:37)
[2021-09-27] MEDS: Multivit/Ca/Min/Fe/FA 1 TAB TABLET PO SCH (08:30)
[2021-09-27] MEDS: Sennosides 8.6 MG TABLET PO SCH ×2 (08:31→19:37)
[2021-09-27] MEDS: Loratadine/Pseudophed (12 HR) 1 EACH TABLET PO SCH ×2 (08:31→19:37)
[2021-09-27] MEDS: Nitrofurantoin (BID) 100 MG CAPSULE PO SCH ×2 (08:31→16:48)
[2021-09-27] MEDS: carvediloL 25 MG TABLET PO SCH ×2 (08:31→16:48)
[2021-09-27] MEDS: Aspirin Enteric Coated 325 MG Tablet PO SCH (08:31)
[2021-09-28 08:01] VITALS: BP 162/81; PULSE 91; TEMP 98.4; O2SAT 97
[2021-09-28] MEDS: polyethylene glycoL 3350 17 GM POWD.PACK PO SCH (08:09)
[2021-09-28] MEDS: Furosemide 20 MG TABLET PO SCH (08:12)
[2021-09-28] MEDS: Aspirin Enteric Coated 325 MG Tablet PO SCH (08:12)
[2021-09-28] MEDS: Apixaban 5 MG TABLET PO SCH (08:12)
[2021-09-28] MEDS: Multivit/Ca/Min/Fe/FA 1 TAB TABLET PO SCH (08:12)
[2021-09-28] MEDS: Sennosides 8.6 MG TABLET PO SCH (08:13)
[2021-09-28] MEDS: Loratadine/Pseudophed (12 HR) 1 EACH TABLET PO SCH (08:13)
[2021-09-28] MEDS: Nitrofurantoin (BID) 100 MG CAPSULE PO SCH (08:13)
[2021-09-28] MEDS: carvediloL 25 MG TABLET PO SCH (08:14)
[2021-09-28] MEDS: Acetaminophen 325 MG TABLET PO PRN (13:09)
== END 2021-09-28 13:30 | DRG 57 ==
LOC: INPGRE 14:09
PROVIDERS: ADMIT Family Medicine; ATTEND Family Medicine